=== PATIENT | male | born 2005 | race Caucasian/White ===

== ENCOUNTER 2024-07-07 15:23 | Outpatient (AMB) | payer MEDICAID, SELFPAY ==
--- NOTE | 2024-07-07 15:32 | A.OFFPC_ITS ---
Vital Signs 07/07/24 15:39 Height 5 ft 9 in Weight 194 lb BMI 28.6 BP 118/68 Blood Pressure Location Lt brachial Position Sitting Pulse 80 Pulse Source Pulse Oximeter Temp 97.9 F Temp Source Temporal Artery Scan Pulse Oximetry (%) 98 Oxygen Delivery Method Room Air Intake Visit Reasons: est/autism? Intake Note: Kyle presents in the office to establish care. Allergies No Known Allergies Allergy (Verified 07/07/24 15:35) Tobacco use date assessed: 07/07/24 Dental Screening Dental Screen Date: 07/07/24 Did you have a dental visit in the last 12 months?: Yes Did you have a dental problem in the last 6 months where you did not have access to dental care?: No Was dental information given to patient?: Patient has dentist HPI HPI Comments History of Present Illness Details This is a 20-year-old male with a past medical history of autism spectrum disorder and increased weight presenting to establish care. He is accompanied by his aunt, Katlyn. He declined an pier hand. The patient speaks and understands the majority of the conversation in Monegasque, and Katlyn provided interpretation as needed. Patient reports he was diagnosed with autism while he was living in [place] at age 32 years old. Katlyn provides additional history. Patient was living in [place] with his mother and his brother. He contacted Katlyn via [employer], and she became concerned when he expressed that he was feeling badly about himself and saying that he was ?dumb? and makes a lot of mistakes. It subsequently was revealed that his brother may have been putting these negative comments into his head. She contacted his uncle who also lives here, and he bought him a ticket and flew him to [place] a month ago. She reports that Monegasque was his 1st language when he was very young, and then he spoke Yoruba the majority of his childhood and adolescence. He expresses that he makes mistakes, but people should not registered dietician him because of that, and he feels confused about who he is as a person. Katlyn is trying to get services in place for him here. He just got food stamps through [employer]. He is staying with a relative. They report he was in special education classes and completed high school. They have no m edical records from [place], and Katlyn does not believe that he was followed by a primary care provider or mental health provider there. She arranged a Psychology consult on 08/04/24. PHQ-9 and ALTON-7 are mildly positive today. Denies SI/HI. Denies drug use or alcohol use. The only other concern today is that he has reddish pimples on his left forearm. He applied a xurq-dmy-eirzyki antibiotic ointment, and this has improved. He shaves his arms. ROS: Constitutional: No unexplained weight loss, fever, chills, fatigue or night sweats. Neurologic: No headache, dizziness, syncope, seizures Psychiatric: See HPI Physical exam: Constitutional: Alert, in no distress. Neck: Supple, Full range of motion. No lymphadenopathy. No palpable thyroid masses. Respiratory: Clear to auscultation. Cardiovascular: S1 S2 regular. No murmurs Neurologic: Symmetric patellar reflexes. Moves all extremities spontaneously. Sensation intact bilaterally. Skin: There are a 5 mildly erythematous/hyperpigmented spots on the left forearm and 1 small papule. There are no pustular points, swelling or drainage. Psychiatric: Cooperative. Unusual intonation and echolalia noted. FORMERLY [facility] Medical History (Updated 07/08/24 @ 08:37 by YONATAN Eastman) Folliculitis Depression with anxiety Autism spectrum disorder Overweight Screening for cardiovascular condition Family History (Updated 07/07/24 @ 15:46 by Malou Osei MA) Maternal Grandfather FHx: mental illness Depression Anxiety Mother Hypertension Hyperlipemia Diabetes Maternal Grandmother Hypertension Paternal Grandmother Hypertension Brother Asthma Social History (Updated 07/07/24 @ 15:39 by Malou Osei MA) Housing: House Alcohol intake: never Patient Tobacco Use Status: Never used Tobacco e-Cigarette/Vaping Use: Never Used Second Hand Smoke Exposure: No service: No Current occupational status: unemployed Current occupational exposures/hazards: No Cognitive needs: Yes Hearing needs: No Vision needs: No Questionnaire PHQ-9 Over the last 2 weeks, how often have you been bothered by any of the following problems? 1. Little interest or pleasure in doing things: not at all 2. Feeling down, depressed, or hopeless: several days 3. Trouble falling or staying asleep, or sleeping too much: not at all 4. Feeling tired or having little energy: several days 5. Poor appetite or overeating: not at all 6. Feeling bad about yourself - or that you are a failure or have let yourself or your family down: several days 7. Trouble concentrating on things, such as reading the newspaper or watching television: several days 8. Moving or speaking so slowly that other people could have noticed. Or the opposite - being so fidgety or restless that you have been moving around a lot more than usual: several days 9. Thoughts that you would be better off or of hurting yourself in some way: not at all Total score: 5 Depression Screening Interpretation: Positive Depression Screening Follow-up: Community Mental [facility] Worker F/U Depression Screening Done: Yes 81451 - PHQ-9 Billing: Yes Source: Developed by Drs. Gab Baker, Hetal Jose, Terrence Baron and colleagues, with an educational christine from [employer]. Thrive Questionnaire Date Thrive assessed: 07/07/24 I am a: Patient What is your living situation today?: I have a steady place to live Within the past 12 months, did the food you bought not last and you didn't have the money to get more?: I choose not to answer this question Within the past 12 months, did you worry whether your food would run out before you got money to buy more?: I choose not to answer this question Do you have trouble paying for medicines?: No Do you have trouble getting transportation to medical appointments?: No Do you have trouble paying your heating and electricity bill?: I choose not to answer this question Do you have trouble taking care of your child, family member or friend?: No Do you have trouble with day-to-day activities such as bathing, preparing meals, shopping, managing finances, etc.?: No Are you currently unemployed and looking for a job?: I choose not to answer this question Are you interested in more education?: Yes Please select the resources that you would like help with: None Currently or been in a relationship where the following occur: I choose not to answer THRIVE Score: 0 AUDIT C Alcohol Use Questionnaire (AUDIT-C) 1. How often do you have a drink containing alcohol?: Never 3. How often do you have six or more drinks on one occasion?: Never Total Score: 0 Score Reviewed/Action Taken: No ALTON-7 AMB Questionnaire ALTON-7 Date ALTON - 7 assessed: 07/07/24 Feeling nervous, anxious, or on edge: 1 = Several days Not being able to stop or control worryin = Several days Worrying too much about different things: 1 = Several days Trouble relaxin = Several days Being so restless that it is hard to sit still: 1 = Several days Becoming easily annoyed or irritable: 0 = Not at all Feeling afraid as if something awful might happen: 1 = Several days Total ALTON-7 score (0-4 normal; 5-9 mild; 10-14 moderate; 15-21 severe): 6 Source: Developed by Drs. Gab Baker, Hetal Jose, Terrence Baron and colleagues, with an educational christine from [employer]. ALTON-7 Assessment Billing ALTON-7 Assessment Tool: ALTON-7 Assessment 56711 Physical exam (Primary Care) Vital Signs: Last Vital Signs Temp 97.9 F 07/07/24 15:39 Pulse 80 07/07/24 15:39 BP 118/68 07/07/24 15:39 Pulse Ox 98 07/07/24 15:39 Oxygen Delivery Method Room Air 07/07/24 15:39 BMI result Body Mass Index 28.6 Tobacco/Smoking Status: Tobacco use Status Tobacco use date assessed 07/07/24 07/07/24 15:46 Patient Tobacco Use Status Never used Tobacco 07/07/24 15:46 e-Cigarette/Vaping Use Never Used 07/07/24 15:46 PHQ-9: PHQ-9 Score PHQ-9: Total score 5 07/07/24 15:55 Depression Screening Interpretation: Positive Depression Screening Follow-up: Community Mental Health Worker F/U Thrive Assessment: Date of Thrive Assessment Date Thrive assessed 07/07/24 07/07/24 15:33 Currently or been in a relationship where the following occur: I choose not to answer Coding Level of Care Code New Pt Level 4 (57572) Complex EM visit Add On G2211 Diagnoses Screening for cardiovascular condition Z13.6 Overweight E66.3 Depression with anxiety F41.8 Autism spectrum disorder F84.0 Folliculitis L73.9 Additional Codes LATON-7 Assessment Billing - ALTON-7 Assessment Tool: ALTON-7 Assessment 25066 ([id number]) PHQ-9 - 57197 - PHQ-9 Billing: Yes ([id number]) Assessment & Plan Assessment & Plan (1) Screening for cardiovascular condition: Code(s): Z13.6 - Encounter for screening for cardiovascular disorders Category: Medical (2) Overweight: Code(s): E66.3 - Overweight Category: Medical (3) Depression with anxiety: Code(s): F41.8 - Other specified anxiety disorders Category: Medical (4) Autism spectrum disorder: Code(s): F84.0 - Autistic disorder Category: Medical (5) Folliculitis: Code(s): L73.9 - Follicular disorder, unspecified Category: Medical Plan I placed [facility], psychology, psychiatry and ordered a neuropsych evaluation since there is no documentation of his prior evaluation in [place] at which time he was diagnosed with autism spectrum disorder. We will treat mild folliculitis with topical mupirocin. Patient weight is increased. He has been eating a lot of sugary foods and soda since relocating to [place]. Dietary recommendations reviewed. He will schedule a physical exam. Orders: Orders TSH reflex Free T4 07/07/24 E66.3 - Overweight, F84.0 - Autistic disorder, Z13.6 - Encounter for screening for cardiovascular disorders Complete Blood Count no Diff 07/07/24 E66.3 - Overweight, F84.0 - Autistic disorder, Z13.6 - Encounter for screening for cardiovascular disorders Comprehensive Met. Panel 07/07/24 E66.3 - Overweight, F84.0 - Autistic disorder, Z13.6 - Encounter for screening for cardiovascular disorders Lipid Panel 07/07/24 E66.3 - Overweight, E78.5 - Hyperlipidemia, unspecified, F84.0 - Autistic disorder, Z13.6 - Encounter for screening for cardiovascular disorders Referrals Psychology Referral F41.8 - Other specified anxiety disorders, F84.0 - Autistic disorder Psychiatry Referral F41.8 - Other specified anxiety disorders, F84.0 - Autistic disorder Neuropsychiatry Referral F84.0 - Autistic disorder Medications: New mupirocin 2% 1 appl topical BID 22 grams 0RF
[2024-07-07 15:39] VITALS: BP 118/68; PULSE 80; TEMP 36.6; O2SAT 98; BMI 28.6
== END 2024-07-07 16:18 | disposition home or self-care (01) ==
LOC: HO.HMCFM 15:24
PROVIDERS: PCP Physician Assistant Medical; Visit Provider Physician Assistant Medical
DX: F41.8 Other specified anxiety disorders (principal); Z13.6 Encounter for screening for cardiovascular disorders; F84.0 Autistic disorder; L73.9 Follicular disorder, unspecified; E66.3 Overweight

== ENCOUNTER → 2024-07-07 15:23 | Outpatient (BNVA) | payer OTHER, SELFPAY | PROVIDERS: PCP Physician Assistant Medical; Visit Provider Physician Assistant Medical | DX: F84.0 Autistic disorder (principal); E66.3 Overweight; F41.8 Other specified anxiety disorders; L73.9 Follicular disorder, unspecified; Z68.28 Body mass index [BMI] 28.0-28.9, adult | CPT/HCPCS: 96127; 99202 ==

== ENCOUNTER 2024-07-08 09:17 | Outpatient (REF) | payer OTHER, SELFPAY ==
[2024-07-08 13:30] LABS: Hematocrit 50.3 % (42.0-52.0); Hemoglobin 16.3 g/dl (14.0-18.0); Mean Corpuscular HGB Conc 32.4 g/dl (31.0-36.0); Mean Corpuscular Hemoglobin 26.1 pg (27.0-33.0); Mean Corpuscular Volume 80.5 fL (80.0-98.0); Mean Platelet Volume 10.3 fL (9.4-12.4); Platelet Count 236 X10*3/uL (160-400); Red Blood Count 6.25 X10*6/uL (4.60-5.80); Red Cell Distribution Width 12.3 % (11.0-16.0); White Blood Count 8.7 X10*3/uL (4.8-10.8)
[2024-07-08 14:16] LABS: Alanine Aminotransferase 24 U/L (0-40); Albumin Level 4.9 g/dL (3.5-5.0); Alkaline Phosphatase 81 U/L (39-117); Anion Gap 10 (12-20); Aspartate Amino Transferase 28 U/L (5-37); Bilirubin Total 0.5 mg/dL (0.0-1.0); Blood Urea Nitrogen 12 mg/dL (9-16); Carbon Dioxide 30 mmol/L (22-29); Chloride 106 mmol/L (96-108); Cholesterol 205 mg/dL (<200); Estimated Glomerular Filt Rate > 60; Glucose Random 90 mg/dL (60-115); HDL Cholesterol 43 mg/dL (>40); LDL Cholesterol Calculated 135 mg/dL (<100); Potassium 4.2 mmol/L (3.3-5.1); Sodium 142 mmol/L (135-145); Total Protein 7.9 g/dL (6.5-8.0); Triglycerides 137 mg/dL (<150)
[2024-07-08 14:33] LABS: TSH reflex Free T4 0.75 uIU/mL (0.32-4.0)
== END 2024-07-08 09:18 | disposition home or self-care (01) ==
LOC: HO.HMGCLDS 09:17
PROVIDERS: PCP Physician Assistant Medical; Visit Provider Physician Assistant Medical
DX: Z13.6 Encounter for screening for cardiovascular disorders (principal); E66.3 Overweight; F84.0 Autistic disorder; E78.5 Hyperlipidemia, unspecified
CPT/HCPCS: 36415; 80053; 80061; 84443; 85027

== ENCOUNTER 2024-07-30 14:08 | Outpatient (AMB) | payer OTHER, SELFPAY ==
--- NOTE | 2024-07-30 14:10 | MHC.PC.OV ---
Vital Signs 07/30/24 14:13 Height 5 ft 9 in Weight 199 lb BMI 29.4 BP 130/66 Blood Pressure Location Rt brachial Position Sitting Respiration 12 Pulse 92 Pulse Source Pulse Oximeter Temp 98.8 F Temp Source Oral Pulse Oximetry (%) 98 Oxygen Delivery Method Room Air Intake Visit Reasons: Physical / Carolee's Pt. Intake Note: Physical Accompanied by: Grand Parent Allergies No Known Allergies Allergy (Verified 07/30/24 14:11) Tobacco use date assessed: 07/30/24 Dental Screening Dental Screen Date: 07/07/24 HPI Physical / Carolee's Pt. HPI Details Patient is a 19-year-old male with a significant past medical history of autism spectrum disorder presenting today for a physical exam. He has no acute concerns today. States that he needs physical for paperwork. No acute concerns today He is trying to exercise and be healthy. He is accompanied today by his father. [facility] Medical History (Updated 07/08/24 @ 08:37 by YONATAN Eastman) Folliculitis Depression with anxiety Autism spectrum disorder Overweight Screening for cardiovascular condition Surgical History No pertinent past surgical history Family History Maternal Grandfather FHx: mental illness Depression Anxiety Mother Hypertension Hyperlipemia Diabetes Maternal Grandmother Hypertension Paternal Grandmother Hypertension Brother Asthma Social History (Updated 07/30/24 @ 14:28 by Areli Scott CMA) Housing: House Alcohol intake: never Patient Tobacco Use Status: Never used Tobacco e-Cigarette/Vaping Use: Never Used Second Hand Smoke Exposure: No Use of substances other than those prescribed or required for medical reasons: No service: No Current occupational status: unemployed Current occupational exposures/hazards: No Cognitive needs: Yes Hearing needs: No Vision needs: No Questionnaire Thrive Questionnaire Date Thrive assessed: 07/04/24 I am a: Patient What is your living situation today?: I have a steady place to live Within the past 12 months, did the food you bought not last and you didn't have the money to get more?: I choose not to answer this question Within the past 12 months, did you worry whether your food would run out before you got money to buy more?: I choose not to answer this question Do you have trouble paying for medicines?: No Do you have trouble getting transportation to medical appointments?: No Do you have trouble paying your heating and electricity bill?: I choose not to answer this question Do you have trouble taking care of your child, family member or friend?: No Do you have trouble with day-to-day activities such as bathing, preparing meals, shopping, managing finances, etc.?: No Are you currently unemployed and looking for a job?: I choose not to answer this question Are you interested in more education?: Yes Please select the resources that you would like help with: None Currently or been in a relationship where the following occur: I choose not to answer THRIVE Score: 0 AUDIT C Alcohol Use Questionnaire (AUDIT-C) 1. How often do you have a drink containing alcohol?: Never 3. How often do you have six or more drinks on one occasion?: Never Total Score: 0 ALTON-7 AMB Questionnaire ALTON-7 Date ALTON - 7 assessed: 07/07/24 Source: Developed by Drs. Gab Baker, Hetal Jose, Terrence Baron and colleagues, with an educational christine from [employer]. Physical exam (Primary Care) Vital Signs: Last Vital Signs Temp 98.8 F 07/30/24 14:13 Pulse 92 07/30/24 14:13 Resp 12 07/30/24 14:13 BP 130/66 07/30/24 14:13 Pulse Ox 98 07/30/24 14:13 Oxygen Delivery Method Room Air 07/30/24 14:13 BMI result Body Mass Index 29.4 Tobacco/Smoking Status: Tobacco use Status Tobacco use date assessed 07/30/24 07/30/24 14:13 Patient Tobacco Use Status Never used Tobacco 07/30/24 14:28 e-Cigarette/Vaping Use Never Used 07/30/24 14:28 Thrive Assessment: Date of Thrive Assessment Date Thrive assessed 07/04/24 07/30/24 14:13 Currently or been in a relationship where the following occur: I choose not to answer Const Orientation/consciousness: patient oriented x3 HENMT Ears: hearing grossly normal bilaterally and TM's normal bilaterally General nose exam: No nasal polyps present Face and sinus: Yes sinuses nontender Mouth: Normal oral and palatal mucosa present Eyes Pupils: Equal, round and reactive pupils present EOM: EOMs intact bilaterally Neck Neck: Yes full ROM and Yes no lymphadenopathy Thyroid: Thyroid normal Chest Chest palpation & inspection: normal inspection of the chest Resp Auscultation: clear to auscultation bilaterally Cardio Rate: regular rate Rhythm: regular rhythm Heart sounds: S1 normal heart sound present and S2 normal heart sound present Peripheral pulses: Peripheral pulses 2+ throughout GI Other: Soft, nontender Auscultation: normal bowel sounds Rectal Exam - Male: Yes deferred General: Yes no CVA tenderness Back/Spine/Pelvis Other: Nontender Back: no CVA tenderness Skin General skin exam: no rashes or lesions noted Neuro General: patient oriented x3, gait normal, CN's II-XI intact bilaterally and deep tendon reflexes 2+ bilaterally Cranial nerves: Yes Equal, round and reactive pupils present Motor exam (neuro): 5/5 motor strength present throughout Sensory Exam: double simultaneous stimulation for sensation normal Coordination: [id number] test normal and Romberg test negative Extrem General: Yes normal to inspection and Yes full ROM Psych Affect: normal affect Attitude: cooperative Thought process: Normal thought process present Thought content: Normal thought content present Insight: Good insight present (Psych) Judgement: Good judgement present (Psych) Results Reviewed Results Reviewed: Laboratory Tests 07/08/24 09:55 Triglycerides 137 Cholesterol 205 H LDL Cholesterol, Calc 135 H HDL Cholesterol 43 Coding Level of Care Code Est Pt Prev Care 18-39y(96688) Diagnoses Routine general medical examination at a health care facility Z00.00 Assessment & Plan Assessment & Plan (1) Routine general medical examination at a health care facility: Code(s): Z00.00 - Encounter for general adult medical examination without abnormal findings Plan: Health maintenance reviewed Labs reviewed Paperwork filled out today.
[2024-07-30 14:13] VITALS: BP 130/66; PULSE 92; RESP 12; TEMP 37.1; O2SAT 98; BMI 29.4
== END 2024-07-30 15:00 | disposition home or self-care (01) ==
LOC: HO.HMCFM 14:09
PROVIDERS: PCP Physician Assistant Medical; Visit Provider Physician Assistant
DX: Z00.00 Encounter for general adult medical examination without abnormal findings (principal)

== ENCOUNTER → 2024-07-30 14:08 | Outpatient (BNVA) | payer OTHER, SELFPAY | PROVIDERS: PCP Physician Assistant Medical; Visit Provider Physician Assistant | DX: Z00.00 Encounter for general adult medical examination without abnormal findings (principal); F84.0 Autistic disorder | CPT/HCPCS: 99395 ==

== ENCOUNTER 2025-01-12 13:27 | Outpatient (AMB) | payer OTHER, SELFPAY ==
--- OUTSIDE RECORDS SUMMARY | 2025-01-07 15:30 | XMS_ITS | Encounter Summary ---
Author Organization [employer] Address [address] [place] [id number] Care Team Providers Care Athletic Coordinator Name Role Phone Unavailable Primary Care Provider Unavailabl e Reason for Visit * Reason Comments Consult [place] teeth ext Encounter Details Date Type Department Care Team (Late st Contact Info) Description 01/07/2025 3:30 PM EST Office Visit [facility] ADULT D[facility]AL [address] [place] [address] Marbin Gonzalez [address] [place] [address] Social History Tobacco Use Types Packs/Day Years Used Date Smoking Tobacco: Never Smokeless Tobacco: Never Sex and Gender Information Value Date Recorded Sex Assigned at Male 12/08/2024 11:35 AM EST Legal Sex Male 11:31 AM EST Gender Identity Male 12/08/2024 11:35 AM EST Sexual Orientation Straight 12/08/2024 11 :35 AM EST documented as of this encounter Progress Notes * Marbin Gonzalez - 01/07/2025 3:30 PM EST Dental procedures in this visit D9310 - CONSULTATION - DIAGNOSTIC SERVICE PROVIDED BY DENTIST OR PHYSICIAN OTHER THAN REQUESTING DENTIST OR PHYSICIAN (Completed) Service provider: Marbin Gonzalez Billing provider: Mello Wyatt DMD D0330 - PANORAMIC RADIOGRAPHIC IMAGE (Completed) Service provider: Marbin Gonzalez Billing provider: Mello Wyatt DMD D9450 - CASE PRESENTATION, DETAILED AND EXTENSIVE TREATMENT PLANNING (Completed) Service provider: Marbin Gonzalez Billing provider: Mello Wyatt DMD Patient ID: Kyle Felix is a 19 y.o. male. Time Out: Date: 01/07/2025 Location: [facility] Tooth: #1, #16, #17, and #32 Procedure: Exam Verified the above with patient, hospital nursing assistant, and provider. Confirmed via patient's chart, intraorally and by radiographs. Media Relations Associate: not applicable 19 y.o. y/o male presents for limited exam with Dr. Marbin Gonzalez Medical history: Reviewed in EHR Vitals: There were no vitals taken for this visit. Allergies: Reviewed in EHR Medications: Reviewed in EHR Radiographs taken: [place] CHIEF COMPLAINT: Im here for my consult Discussion: Patient presented for a consultation regarding teeth #1, 16, 17 and #32. The patient reported discomfort in the posterior maxilla and mandible over the past few weeks. Clinical and radiographic examination revealed that teeth #1, 16, 17 and #32 are impacted and require extraction. Dx: #1 gingival impacted, #16, 17 full bony impaction. #32 partially bony inpaction. The patient was informed of these findings, including the potential for recurrent infection, periodontal complications, and possible damage to adjacent teeth if the third molars are not removed. All treatment options, risks, and benefits were discussed in detail. The patient demonstrated understanding of the treatment plan, had all questions answered, and agreed to proceed with the recommended extractions. NV: EXT Provider: Dr. Marbin Gonzalez Dental Dot Etcher: Elaina Up Attending: Dr. Wyatt documented in this encounter Plan of Treatment Upcoming Encounters Date Type Department Care Team ([facility] st Contact Info) Description 03/04/2025 11:00 AM EST Office Visit [facility] ADULT D[facility] [address] [place] [address] Marbin Gonzalez [address] [place] [address] 06/23/2025 2:00 PM EDT Office Visit [facility] ADULT D[facility] [address] [place] [address] Farideh Burk documented as of this encounter Procedures Procedure Name Priority Date/Time Associated Diagnosis Comments PANORAMIC RADIOGRAPHIC IMAGE Routine 01/07/2025 3:30 PM EST CONSULTATION - DIAGNOSTIC SERVICE PROVIDED BY DENTIST OR PHYSICIAN OTHER THAN REQUESTING DENTIST OR PHYSICIAN Routine 01/07/2025 3:30 PM EST CASE PRESENTATION, DETAILED AND EXTENSIVE TREATMENT PLANNING Routine 01/07/2025 3:30 PM EST documented in this encounter Visit Diagnoses Not on filedocumented in this encounter
--- NOTE | 2025-01-12 15:07 | MHC.PC.OV ---
Vital Signs 01/12/25 15:10 01/12/25 15:14 Height 5 ft 9 in Weight 207 lb 6 oz BMI 30.6 BP 98/58 L 108/58 L Blood Pressure Location Rt brachial Rt brachial Position Sitting Sitting Respiration 13 Pulse 77 Pulse Source Pulse Oximeter Temp 98.4 F Temp Source Temporal Artery Scan Pulse Oximetry (%) 99 Oxygen Delivery Method Room Air Intake Visit Reasons: allergies and Lab work Intake Note: Kyle presents in the office today to follow up to his lab work and allergies. Lean Manager Required: No Allergies No Known Allergies Allergy (Verified 01/12/25 15:09) Tobacco use date assessed: 01/12/25 Dental Screening Dental Screen Date: 01/12/25 Did you have a dental visit in the last 12 months?: Yes Did you have a dental problem in the last 6 months where you did not have access to dental care?: No Was dental information given to patient?: Patient has dentist HPI HPI Comments History of Present Illness Details This is a 19-year-old male with a past medical history of autism spectrum disorder and obesity presenting for allergies and to discuss lab results. His grandfather is in the waiting room. Endorses runny nose and itchy eyes in Fall and Winter. Denies coughing, wheezing. Tried Benadryl which helps temporarily. Autism-it was reportedly diagnosed while living in [place] age 32 years old. Currently seeing a therapist at [facility] once weekly. He is living with his cousin. Nonsmoker. No alcohol or drug use. Hyperlipidemia-LDL 135. Patient says he was nervous about this. He eats red meat regularly, and he has sugary drinks sometimes, and he also cooks with real butter. Patient says he received the flu vaccine at the pharmacy a month ago. ROS: Constitutional: No fevers or chills Eyes: No vision changes or blurry vision. Endorses itchy eyes. No redness or discharge. ENT: No ear pain, sore throat, sinus pain. Endorses runny nose and some postnasal drip.. Respiratory: No shortness of breath, cough or sputum production. Skin: No rash or hives Physical exam: Constitutional: Alert, in no distress. Eyes: No erythema, swelling or discharge. PERRL. Nose: Inferior turbinates 1+. No discharge. Sinuses nontender. Mouth/throat: Cobblestoned throat. No edema or exudates. Neck: Supple, Full range of motion. No lymphadenopathy. No palpable thyroid masses. Respiratory: Clear to auscultation. Cardiovascular: S1 S2 regular. No murmurs Psychiatric: Cooperative. Unusual intonation and echolalia. [facility] Medical History (Updated 01/12/25 @ 15:46 by YONATAN Eastman) Allergic rhinitis Hyperlipidemia Folliculitis Depression with anxiety Autism spectrum disorder Overweight Screening for cardiovascular condition Surgical History No pertinent past surgical history Family History Maternal Grandfather FHx: mental illness Depression Anxiety Mother Hypertension Hyperlipemia Diabetes Maternal Grandmother Hypertension Paternal Grandmother Hypertension Brother Asthma Social History (Updated 01/12/25 @ 15:10 by Malou Osei CMA) Housing: House Alcohol intake: never Patient Tobacco Use Status: Never used Tobacco e-Cigarette/Vaping Use: Never Used Second Hand Smoke Exposure: No service: No Current occupational status: unemployed Current occupational exposures/hazards: No Cognitive needs: Yes Hearing needs: No Vision needs: No Questionnaire Thrive Questionnaire Date Thrive assessed: 07/04/24 I am a: Patient What is your living situation today?: I have a steady place to live Within the past 12 months, did the food you bought not last and you didn't have the money to get more?: I choose not to answer this question Within the past 12 months, did you worry whether your food would run out before you got money to buy more?: I choose not to answer this question Do you have trouble paying for medicines?: No Do you have trouble getting transportation to medical appointments?: No Do you have trouble paying your heating and electricity bill?: I choose not to answer this question Do you have trouble taking care of your child, family member or friend?: No Do you have trouble with day-to-day activities such as bathing, preparing meals, shopping, managing finances, etc.?: No Are you currently unemployed and looking for a job?: I choose not to answer this question Are you interested in more education?: Yes Please select the resources that you would like help with: None Currently or been in a relationship where the following occur: I choose not to answer THRIVE Score: 0 ALTON-7 AMB Questionnaire ALTON-7 Date ALTON - 7 assessed: 07/07/24 Source: Developed by Drs. Gab Baker, Hetal Jose, Terrence Baron and colleagues, with an educational christine from [employer]. Physical exam (Primary Care) Vital Signs: Last Vital Signs Temp 98.4 F 01/12/25 15:10 Pulse 77 01/12/25 15:10 Resp 13 01/12/25 15:10 BP 108/58 L 01/12/25 15:14 Pulse Ox 99 01/12/25 15:10 Oxygen Delivery Method Room Air 01/12/25 15:10 BMI result Body Mass Index 30.6 Tobacco/Smoking Status: Tobacco use Status Tobacco use date assessed 01/12/25 01/12/25 15:13 Patient Tobacco Use Status Never used Tobacco 01/12/25 15:13 e-Cigarette/Vaping Use Never Used 01/12/25 15:13 Thrive Assessment: Date of Thrive Assessment Date Thrive assessed 07/04/24 01/12/25 15:13 Currently or been in a relationship where the following occur: I choose not to answer Coding Level of Care Code Est Pt Level 4 (95110) Complex visit Add On G2211 Diagnoses Autism spectrum disorder F84.0 Overweight E66.3 Pure hypercholesterolemia E78.00 Hyperlipidemia type: pure hypercholesterolemia Seasonal allergic rhinitis, unspecified trigger J30.2 Allergic rhinitis trigger: unspecified Allergic rhinitis seasonality: seasonal Assessment & Plan Assessment & Plan (1) Autism spectrum disorder: Code(s): F84.0 - Autistic disorder Category: Medical Plan: Followed by a therapist now at [facility] weekly. (2) Overweight: Code(s): E66.3 - Overweight Category: Medical Plan: See notes below. Limit portion sizes and start exercising. Reviewed healthy diet. (3) Hyperlipidemia: Code(s): E78.5 - Hyperlipidemia, unspecified Category: Medical Qualifiers: Hyperlipidemia type: pure hypercholesterolemia Qualified Code(s): E78.00 - Pure hypercholesterolemia, unspecified Plan: Recommended Mediterranean diet. Decrease red meat and full fat dairy products. Increase lean proteins and fibrous fruits and vegetables. Incorporate exercise at least 5 days per week. Advised patient we do not need to check this until physical exam in the summer, but he is worried about it and would prefer to recheck in a couple of months. Orders placed. (4) Allergic rhinitis: Code(s): J30.9 - Allergic rhinitis, unspecified Category: Medical Qualifiers: Allergic rhinitis trigger: unspecified Allergic rhinitis seasonality: seasonal Qualified Code(s): J30.2 - Other seasonal allergic rhinitis Plan: Trial of Claritin 10 mg daily as needed. Advised patient to call if this does not alleviate symptoms. I would add a nasal spray and consider referral to Allergy and immunology. Orders: Orders Complete Blood Count no Diff 2 Months E66.3 - Overweight, Z13.6 - Encounter for screening for cardiovascular disorders Comprehensive Met. Panel 2 Months E66.3 - Overweight, Z13.6 - Encounter for screening for cardiovascular disorders Lipid Panel 2 Months E66.3 - Overweight, E78.5 - Hyperlipidemia, unspecified, Z13.6 - Encounter for screening for cardiovascular disorders Medications: New loratadine (Claritin) 10 mg PO DAILY PRN 90 tabs 1RF allergy symptoms
[2025-01-12 15:10] VITALS: BP 98/58; PULSE 77; RESP 13; TEMP 36.9; O2SAT 99; BMI 30.6
[2025-01-12 15:14] VITALS: BP 108/58
--- OUTSIDE RECORDS SUMMARY | 2025-01-12 22:13 | XMS_ITS | Clinical Summary ---
Author Organization [employer] [facility] Address [address] [place] [address] [address] [place] [address] Care Team Providers Care Solution Specialist Name Role Phone Unavailable Primary Care Provider Unavailabl e Allergies No known active allergies Medications No known medications Active Problems No known active problems Encounters Date Type Department Care Team Description 01/07/2025 3:30 PM EST Office Visit [facility] [address] [place] [address] Marbin Gonzalez 12/19/2024 1:30 PM EST Office Visit [facility] [address] [place] [address] Farideh Burk Encounter for dental exam and cleaning w/o abnormal findings (Primary Dx); Dental calculus from Last 3 Months Social History Tobacco Use Types Packs/Day Years Used Date Smoking Tobacco: Never Smokeless Tobacco: Never Tobacco Cessation:Counseling Given: Not Answered Sex and Gender Information Value Date Recorded Sex Assigned at Male 12/08/2024 11:35 AM EST Legal Sex Male 11:31 AM EST Gender Identity Male 12/08/2024 11:35 AM EST Sexual Orientation Straight 12/08/2024 11 :35 AM EST Last Filed Vital Signs Vital Sign Reading Time Taken Comments Blood Pressure 142/90 12/19/2024 1:20 PM EST Pulse - - Temperature - - Respiratory Rate - - Oxygen Saturation - - Inhaled Oxygen Concentration - - Weight - - Height - - Body Mass Index - - Plan of Treatment Upcoming Encounters Date Type Department Care Team ([facility] st Contact Info) Description 03/04/2025 11:00 AM EST Office Visit [facility] [address] [place] [address] Marbin Gonzalez [address] [place] [address] 06/23/2025 2:00 PM EDT Office Visit [facility] [address] [place] [address] Farideh Burk Health Maintenance Due Date Last Done Comments Chlamydia and Gonorrhea Screening 2004 Depression Screening 2004 HIV Screening 2004 SDOH Screening 2004 Disability Screening 2004 Alcohol/Substance Use Screening 2016 Family Planning (PISQ) 01/25/2019 HPV Vaccines (1 - Male 3-dos e series) 01/25/2019 Meningococcal B Vaccine (1 o f 2 - Standard) 2020 Hepatitis C Screening 01/25/2022 DTaP/Tdap/Td Vaccines (1 - Tdap) 01/25/2023 Hepatitis B Vaccines (1 of 3 - 19+ 3-dose series) 01/25/2023 COVID-19 Vaccine (1 - 2024-2 6 season) 2024 Influenza Vaccine (#1) 2024 Dental Oral Exam 06/19/2025 12/19/2024 Dental Prophylaxis 06/19/2025 12/19/2024 Dental X-Ray: Bitewings 12/20/2025 12/19/2024 Tobacco Screening 01/07/2026 01/07/2025 Dental X-Ray: Full Mouth 01/09/2028 025, 12/19/2024 Zoster Vaccines (1 of 2) 01/25/2054 RSV Patients and Patients Aged 60 years or older (1 - 1-dose 75+ series) 01/25/2079 HIB Vaccines Aged Out No longer eligi ble based on patient's age to complete this topic Hepatitis A Vaccines Aged Out No long er eligible based on patient's age to complete this topic IPV Vaccines Aged Out No longer eligi ble based on patient's age to complete this topic Meningococcal Vaccine Aged Out No jaden jan eligible based on patient's age to complete this topic Pneumococcal Vaccine: Pediatrics (0 to 5 Years) and At-Risk Patients (6 to 49) Years Aged Out No longer eligible b ased on patient's age to complete this topic RSV under 20 months Aged Out No longe r eligible based on patient's age to complete this topic Rotavirus Vaccines Aged Out No longer eligible based on patient's age to complete this topic Procedures Procedure Name Priority Date/Time Associated Diagnosis Comments CASE PRESENTATION, DETAILED AND EXTENSIVE TREATMENT PLANNING Routine 01/07/2025 3:30 PM EST PANORAMIC RADIOGRAPHIC IMAGE Routine 01/07/2025 3:30 PM EST CONSULTATION - DIAGNOSTIC SERVICE PROVIDED BY DENTIST OR PHYSICIAN OTHER THAN REQUESTING DENTIST OR PHYSICIAN Routine 01/07/2025 3:30 PM EST COMPREHENSIVE ORAL EVALUATION - NEW OR ESTABLISHED PATIENT Routine 12/19/2024 1:30 PM EST Encounter for dental exam and cleaning w/o abnormal findings ORAL HYGIENE INSTRUCTIONS Routine 2024 1:30 PM EST Encounter for dental exam and cleaning w/o abnormal findings INTRAORAL - COMPLETE SERIES OF RADIOGRAPHIC IMAGES Routine 12/19/2024 1:30 PM EST Encounter for dental exam and cleaning w/o abnormal findings CASE PRESENTATION, DETAILED AND EXTENSIVE TREATMENT PLANNING Routine 12/19/2024 1:30 PM EST Encounter for dental exam and cleaning w/o abnormal findings Full PROPHYLAXIS - ADULT Routine 025 1:30 PM EST Encounter for dental exam and cleaning w/o abnormal findings from Last 3 Months Insurance D[facility]AL-[facility] MEDICAID STAND ADULT
== END 2025-01-12 15:42 | disposition home or self-care (01) ==
LOC: HO.HMCFM 13:27
PROVIDERS: PCP Physician Assistant Medical; Visit Provider Physician Assistant Medical
DX: F84.0 Autistic disorder (principal); E66.3 Overweight; E78.00 Pure hypercholesterolemia, unspecified; J30.2 Other seasonal allergic rhinitis

== ENCOUNTER → 2025-01-12 13:27 | Outpatient (BNVA) | payer OTHER, SELFPAY | PROVIDERS: PCP Physician Assistant Medical; Visit Provider Physician Assistant Medical | DX: F84.0 Autistic disorder (principal); E78.00 Pure hypercholesterolemia, unspecified; J30.2 Other seasonal allergic rhinitis; E66.3 Overweight | CPT/HCPCS: 99212 ==